=== PATIENT | female | born 1995 | race Caucasian/White ===

== ENCOUNTER 2021-06-17 08:00 | Outpatient (CLI) | payer SELFPAY ==
[2021-06-17 18:25] LABS: BILIRUBIN,URINE NEGATIVE (NEGATIVE); GLUCOSE, URINE (UA) NEGATIVE (NEGATIVE); KETONES,URINE (UA) NEGATIVE (NEGATIVE); LEUKOCYTE ESTERASE, URINE NEGATIVE (NEGATIVE); NITRITE,URINE NEGATIVE (NEGATIVE); OCCULT BLOOD,URINE NEGATIVE (NEGATIVE); PH,URINE 5.5 PH (5.0-7.5); PROTEIN,URINE NEGATIVE (NEGATIVE); UROBILINOGEN,URINE 0.2 (NORMAL) E.U./dL (NORMAL)
[2021-06-17 18:27] LABS: CLARITY,URINE CLEAR (CLEAR)
[2021-06-17 18:49] LABS: BACTERIA,URINE None Seen /HPF (None Seen); RBC,URINE 0-5 /HPF (0-5); SQUAMOUS EPITHELIAL CELL,UR NONE SEEN (<= Few); WBC,URINE 0-3 /HPF (0-5)
== END 2021-06-17 23:59 | disposition home or self-care (01) ==
LOC: LAB 08:00
PROVIDERS: ATTEND Emergency Medicine
DX: R30.0 Dysuria (principal)
CPT/HCPCS: 81001; 87086

== ENCOUNTER 2022-12-24 19:59 | Outpatient (CLI) | payer OTHER ==
[2022-12-24 20:26] LABS: ALBUMIN 4.5 g/dL (3.2-5.5); ALBUMIN/GLOBULIN RATIO 1.6 (1.0-2.2); BILIRUBIN,TOTAL 0.5 mg/dL (0.2-1.0); CALCIUM 9.2 mg/dL (8.5-10.3); CREATININE 0.7 mg/dL (0.4-1.0); TOTAL PROTEIN 7.3 g/dL (6.7-8.2)
[2022-12-24 20:37] LABS: THYROID STIMULATING HORMONE 0.91 uIU/mL (0.34-5.60)
[2022-12-24 20:42] LABS: FERRITIN 34.3 ng/mL (11.0-306.8)
== END 2022-12-24 20:00 | disposition home or self-care (01) ==
LOC: LAB.S 19:59
PROVIDERS: ATTEND Physician Assistant Medical
DX: D64.9 Anemia, unspecified (principal); R68.83 Chills (without fever); R53.81 Other malaise; R53.83 Other fatigue
CPT/HCPCS: 36415; 80053; 82728; 83540; 84443; 84466; 85025

== ENCOUNTER 2022-12-26 14:30 | Outpatient (CLI) | payer OTHER ==
[2022-12-26 19:52] LABS: BASOPHILS % (AUTO) 0.9 %; EOSINOPHILS # (AUTO) 0.1 10^3/uL (0.0-0.7); EOSINOPHILS % (AUTO) 2.2 %; HCT - HEMATOCRIT 35.5 % (37.0-47.0); HGB - HEMOGLOBIN 11.5 g/dL (12.0-16.0); LYMPHOCYTES # (AUTO) 2.1 10^3/uL (1.5-3.5); LYMPHOCYTES % (AUTO) 46.7 %; MEAN CORPUSCULAR HGB CONC 32.4 g/dL (32.0-36.0); MEAN CORPUSCULAR VOLUME 89.4 fL (81.0-99.0); MEAN PLATELET VOLUME 10.6 fL (7.9-10.8); MONOCYTES # (AUTO) 0.4 10^3/uL (0.0-1.0); MONOCYTES % (AUTO) 8.1 %; NEUTROPHILS # (AUTO) 1.9 10^3/uL (1.5-6.6); NEUTROPHILS % (AUTO) 41.9 %; PLT - PLATELET COUNT 268 10^3/uL (130-450); RED BLOOD COUNT 3.97 10^6/uL (4.20-5.40); RED CELL DISTRIBUTION WIDTH 14.1 % (12.0-15.0); WHITE BLOOD COUNT 4.6 x10^3/uL (4.8-10.8)
== END 2022-12-26 14:31 | disposition home or self-care (01) ==
LOC: LAB.S 14:30
PROVIDERS: ATTEND Physician Assistant Medical
DX: D64.9 Anemia, unspecified (principal); R68.83 Chills (without fever); R53.81 Other malaise; R53.83 Other fatigue
CPT/HCPCS: 36415; 81599; 83020; 85025

== ENCOUNTER 2023-01-09 14:08 | Outpatient (CLI) | payer OTHER | END 2023-01-09 14:09 | disposition home or self-care (01) | LOC: LAB.S 14:08 | PROVIDERS: ATTEND Physician Assistant Medical | DX: D64.9 Anemia, unspecified (principal) | CPT/HCPCS: 81257; 81599 ==

== ENCOUNTER 2023-05-22 13:32 | Outpatient (CLI) | payer OTHER ==
--- NOTE | 2023-05-22 15:58 | Ultrasound Report ---
PROCEDURE: Pelvic w/Transvaginal INDICATIONS: UTERINE CRAMPING TECHNIQUE: Real-time scanning was performed of the pelvic organs, with image documentation. Additional endovagi nal scanning was necessary due to incomplete visualization of the adnexal and endometrial structures by transabdominal scanning. COMPARISON: None. FINDINGS: Uterus: 7.1 x 3.2 x 4.8 cm. Retroverted positioning. 5 to 6 mm endometrium. Overall homogenous echote xture. Ovaries: Nonenlarged ovaries bilaterally. Multiple follicles are present. Other: Small amount pelvic fluid fluid is present. IMPRESSION: No acute sonographic abnormality. Reviewed by: Riley Ramos MD on 05/22/2023 3:57 PM PDT Approved by: Riley Ramos MD on 05/22/2023 3:57 PM PDT Station ID: [id number]
== END 2023-05-22 13:33 | disposition home or self-care (01) ==
LOC: DI 13:32
PROVIDERS: ATTEND Nurse Practitioner Family
DX: N94.89 Other specified conditions associated with female genital organs and menstrual cycle (principal)

== ENCOUNTER 2023-10-01 14:30 | Outpatient (CLI) | payer OTHER ==
[2023-10-02 14:09] LABS: H. PYLORI BREATH TEST Negative (Negative)
== END 2023-10-01 14:31 | disposition home or self-care (01) ==
LOC: LAB 14:30
PROVIDERS: ATTEND Internal Medicine
DX: K29.50 Unspecified chronic gastritis without bleeding (principal)
CPT/HCPCS: 83013

== ENCOUNTER 2024-04-08 20:35 | Emergency (ER) | payer OTHER ==
[2024-04-08 21:02] VITALS: BP 123/69; O2SAT 99
== END 2024-04-08 22:30 | disposition left against medical advice (07) ==
LOC: ED 20:35
DX: Z53.21 Procedure and treatment not carried out due to patient leaving prior to being seen by health care provider (principal)